=== PATIENT | male | born 1980 | race Caucasian/White ===

== ENCOUNTER 2017-01-22 21:03 | Emergency (ER) | payer SELFPAY ==
[2017-01-22 21:18] VITALS: TEMP 98.3; BMI 30.5
--- NOTE | 2017-01-22 21:52 | PDOC ---
Attending Attestation - Resident Resident Name: Magda Tinsley - ED Attending Attestation I have performed the following: I have examined & evaluated the patient, The case was reviewed & discussed with the resident, I agree w/resident's findings & plan, Exceptions are as noted - HPI HPI: 01/22/17 21:56 Pt feeling weak. Hasn't been able to fill his Levimir because he ran out and doesn't have insurance. Pt has been treating his sugar with Metformin. c/o occasional SOB and arm numbness - Physicial Exam PE: 01/22/17 21:55 *Physical Exam General Appearance: Yes: Appropriately Dressed. No: Apparent Distress, Intoxicated HEENT: positive: EOMI, ONUR, Normal ENT Inspection, Normal Voice, TMs Normal, Pharynx Normal. negative: Pale Conjunctivae, Photophobia, Scleral Icterus (R), Scleral Icterus (L) Neck: positive: Trachea midline, Normal Thyroid, Supple. negative: Tender, Rigid, Carotid bruit, Stridor, Lymphadenopathy (R), Lymphadenopathy (L), Thyromegaly Respiratory/Chest: positive: Lungs Clear, Normal Breath Sounds. negative: Chest Tender, Respiratory Distress, Accessory Muscle Use, Labored Respiration, RES, Crackles, Rales, Rhonchi, Stridor, Wheezing, Dullness Cardiovascular: positive: Regular Rhythm, Regular Rate, S1, S2. negative: Edema , JVD, Murmur, Bradycardia, Tachycardia Vascular Pulses: Dorsalis-Pedis (R): 2+, Doralis-Pedis (L): 2+ Gastrointestinal/Abdominal: positive: Normal Bowel Sounds, Flat, Soft. negative : Tender, Organomegaly, Pulsatile Mass, Increased Bowel Sounds, Decreased BS, Distended, Guarding, Rebound, Hernia, Hepatomegaly, Spleenomegaly Lymphatic: negative: Adenopathy, Tenderness Musculoskeletal: positive: Normal Inspection. negative: CVA Tenderness, Decreased Range of Motion Extremity: positive: Normal Capillary Refill, Normal Inspection, Normal Range of Motion, Pelvis Stable. negative: Tender, Pedal Edema, Swelling, Erythema Integumentary: positive: Normal Color, Dry, Warm. 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 negative: EOM Palsy, Facial Droop, Sensory Deficit - Medical Decision Making 01/28/17 19:29 pt treated and released.
--- NOTE | 2017-01-22 22:05 | PDOC ---
History of Present Illness - General Chief Complaint: Weakness Stated Complaint: S.O.B Time Seen by Provider: 01/22/17 21:15 History Source: Patient Exam Limitations: No Limitations - History of Present Illness Initial Comments: This is a 36 yom with d/o DM (supposed to be on levemir and metformin but has not taken the levemir x2 mo d/t insurance issues) who presents c/o 2 days of episodic lightheadedness with cold sweats and blurred vision. The episodes happen at work while he is sitting down and he has not lost consciousness, but has come close. He additionally notes few seconds-long episode of 3/10 central chest pain yesterday which occurred at rest and resolved spontaneously. His hands have been constantly but mildly numb, and he has had mild shortness of breath. He denies any headache, confusion, difficulty speaking/swallowing/ balancing/walking, incontinence, back or neck pain, additional bodily numbness/ tingling/weakness, cough, sore throat, dysuria, or recent falls/injuries. He eats a wholesome diet and is not vegetarian. Past History - Past Medical History Allergies/Adverse Reactions: Allergies Allergy/AdvReac Type Severity Reaction Status Date / Time No Known Allergies Allergy Verified 01/22/17 21:14 Home Medications: Ambulatory Orders Insulin (Levemir) [Levemir Flexpen -] 5 units SQ DAILY 01/22/17 Insulin (Levemir) [Levemir Flexpen -] 25 units SQ DAILY 01/22/17 Metformin HCl 500 mg PO BID 01/22/17 - Psycho/Social/Smoking Cessation Hx Suicidal Ideation: No Smoking History: Former smoker Have you smoked in the past 12 months: No Information on smoking cessation initiated: No Hx Alcohol Use: No Drug/Substance Use Hx: No Review of Systems - Review of Systems Constitutional: No: Chills, Fever, Unexplained wgt Loss HEENTM: Yes: Blurred Vision. No: Nose Congestion, Throat Pain Respiratory: Yes: Shortness of Breath. No: Cough Cardiac (ROS): Yes: Chest Pain (resolved), Lightheadedness. No: Palpitations ABD/GI: No: Constipated, Diarrhea, Nausea, Vomiting : No: Burning, Dysuria Musculoskeletal: No: Back Pain, Neck Pain Integumentary: No: Bruising, Rash Neurological: Yes: Numbness (hands). No: Headache, Tingling, Weakness, Dizziness Endocrine: No: Unexplained Weight Gain, Unexplained Weight Loss *Physical Exam - Vital Signs Last Vital Signs Temp Pulse Resp BP Pulse Ox 98.3 F 67 20 145/71 99 01/22/17 21:05 01/22/17 21:05 01/22/17 21:05 01/22/17 21:05 01/22/17 21:05 - Physical Exam General Appearance: Yes: Nourished, Appropriately Dressed, Other (well- appearing male who is answering questions appropriately and provides good recent medical history). No: Apparent Distress HEENT: positive: EOMI, Normal Voice, Hearing Grossly Normal. negative: Scleral Icterus (R), Scleral Icterus (L), Nasal Congestion Neck: positive: Trachea midline, Supple. negative: Tender, Rigid Respiratory/Chest: positive: Lungs Clear, Normal Breath Sounds. negative: Respiratory Distress, Crackles, Rhonchi, Stridor, Wheezing Cardiovascular: positive: Regular Rhythm, Regular Rate. negative: Murmur Gastrointestinal/Abdominal: positive: Normal Bowel Sounds, Soft, Other (abdomen obese). negative: Tender, Organomegaly, Pulsatile Mass, Guarding Musculoskeletal: positive: Normal Inspection. negative: Decreased Range of Motion, Vertebral Tenderness Extremity: positive: Normal Capillary Refill, Normal Inspection, Normal Range of Motion. negative: Tender, Cyanosis Integumentary: positive: Normal Color, Dry, Warm. 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 negative : EOM Palsy, Facial Droop, Sensory Deficit, Confused, Disoriented Heart Score/ECG Review - History History: Slightly suspicious - Electrocardiogram EKG: Normal - Age Age: </= 45 - Risk Factors Risk Factors Heart Score: Yes Hx Hypertension (resolved), Yes Hx Diabetes - Troponin Troponin: </= normal limit #1 NSR, rate of 69, QTc is 409, otherwise normal EKG ED Treatment Course - LABORATORY CBC & Chemistry Diagram: 01/22/17 22:21 01/22/17 22:21 - RADIOLOGY Radiology Studies Ordered: Category Date Time Status CHEST PA & LAT [RAD] Stat Radiology 01/22/17 21:56 Ordered 01/22/17 23:21 CXR shows nothing acute. Chest X-Ray Result: No Infiltrates Medical Decision Making - Medical Decision Making This is a 36 yo male with h/o DM who presents c/o episodic dizziness, blurred vision x2 days. One episode of CP, also mild SOB and hand numbness. Essentially normal exam without neurologic findings. DDX includes electrolyte disturbance, orthostasis, arrhythmia, infectious (i.e. UTI, PNA/bronchitis) Ordered is CBCD, CMP, Mg, Phos, UA cx, CXR, EKG, trop, TSH. Lab work is unremarkable. BG is only 122 despite the fact that the patient has not been taking his insulin. CXR is unremarkable. Troponin is negative and EKG is unremarkable. He is appropriate for discharge home with close OP followup. *DC/Admit/Observation/Transfer Diagnosis at time of Disposition: Lightheadedness - Discharge Dispostion Disposition: HOME Condition at time of disposition: Stable Admit: No - Referrals Referrals: Toño Mcduffie MD [Staff Physician] - - Patient Instructions Printed Discharge Instructions: DI for Dizziness-Nonvertigo Additional Instructions: You were seen in the emergency room tonight for lightheadedness, blurry vision, and feeling like you almost passed out. we did an electrocardiogram, a chest x- ray, blood and urine labs, which were all normal. Your blood sugar is only 122. Please follow up with Dr. Mcduffie regarding your diabetes, and your primary doctor as well. You can always return to the emergency room for any new or worsening symptoms like fever, recurrence of chest pain, fainting, or other symptoms.
[2017-01-22 22:33] LABS: BASOPHIL 0.7 % (0-2.0); EOSINOPHIL 2.3 % (0-4.5); MCH 30.9 pg (25.7-33.7); MCHC 34.7 g/dl (32.0-35.9); MEAN CELL VOLUME 89.1 fl (80-96); MEAN PLT VOLUME 11.1 fl (7.5-11.1); NEUTROPHILS 57.3 % (42.8-82.8); PLATELET COUNT 134 K/MM3 (134-434); RDW 13.2 % (11.9-15.9); URINE APPEARANCE CLEAR; URINE BILIRUBIN NEGATIVE (NEGATIVE); URINE BLOOD NEGATIVE (NEGATIVE); URINE COLOR STRAW; URINE GLUCOSE (UA) NEGATIVE (NEGATIVE); URINE KETONE NEGATIVE (NEGATIVE); URINE LEUK ESTERASE NEGATIVE (NEGATIVE); URINE NITRITE NEGATIVE (NEGATIVE); URINE PROTEIN NEGATIVE (NEGATIVE); URINE UROBILINOGEN NEGATIVE mg/dL (0.2-1.0); WHITE BLOOD COUNT 7.4 K/mm3 (4.0-10.0)
[2017-01-22 22:43] LABS: VENOUS BLOOD GAS HCO3 26.7 meq/L (19-25); VENOUS PH 7.36 (7.32-7.42)
[2017-01-22 22:57] LABS: ALBUMIN 3.9 g/dl (3.4-5.0); ANION GAP 11 (8-16); BILIRUBIN,TOTAL 0.4 mg/dL (0.2-1.0); CALCIUM 8.9 mg/dL (8.5-10.1); CO2 26 mmol/L (21-32); CREATININE 1.1 mg/dL (0.7-1.3); GLUCOSE,RANDOM 122 mg/dL (74-106); MAGNESIUM 2.3 mg/dL (1.8-2.4); PHOSPHOROUS 3.8 mg/dL (2.5-4.9); SGOT/AST 35 U/L (15-37); SGPT/ALT 31 U/L (12-78); TOT PROT 6.3 g/dl (6.4-8.2)
[2017-01-22 22:58] LABS: ALK PHOS 43 U/L (45-117)
[2017-01-22 23:45] VITALS: BP 109/90; PULSE 64
--- NOTE | 2017-01-23 13:12 | EKG ---
Test Reason : Blood Pressure : / mmHG Vent. Rate : 069 BPM Atrial Rate : 069 BPM P-R Int : 158 ms QRS Dur : 102 ms QT Int : 382 ms P-R-T Axes : -18 -16 -19 degrees QTc Int : 409 ms NORMAL SINUS RHYTHM NORMAL ECG NO PREVIOUS ECGS AVAILABLE Confirmed by ANA RUTH MD ([id number]) on 01/23/2017 1:12:23 PM Referred By: Confirmed By:ANA RUTH MD
== END 2017-01-22 23:46 | disposition home or self-care (01) ==
LOC: JER 21:03
DX: I10 Essential (primary) hypertension (principal); E10.9 Type 1 diabetes mellitus without complications; Z79.4 Long term (current) use of insulin; Z79.84 Long term (current) use of oral hypoglycemic drugs; Z91.14 Patient's other noncompliance with medication regimen
CPT/HCPCS: 36415; 71020-TC; 80053; 81003; 82803; 83735; 84100; 84443; 84484; 85025; 87086; 93005; 93010; 99283-25